=== PATIENT | male | born 1970 | race Caucasian/White ===

== ENCOUNTER 2022-04-19 18:13 | Emergency (ER) | payer OTHER, SELFPAY ==
[2022-04-19 18:41] VITALS: BP 172/91; PULSE 84; RESP 16; TEMP 36.1; O2SAT 99
--- NOTE | 2022-04-19 19:21 | PC.NURSE ---
Pt approached triage desk, stating this is going to be too expensive, im going to go to a dentist tomorrow and take some nyquil. Pt states he will come back if symptoms worsen. Pt educated on risks of leaving before seeing provider and benefits of staying, verbalized understanding.
== END 2022-04-19 19:21 | disposition left against medical advice (07) ==
LOC: ANHED 19:38
DX: R05.9 Cough, unspecified (principal)
CPT/HCPCS: 99199

== ENCOUNTER 2022-04-21 11:13 | Emergency (ER) | payer OTHER, SELFPAY ==
--- NOTE | ~2022-04-21 | XR_ITS ---
EXAMINATION: XR chest 2V DATE: 04/21/2022 12:49 INDICATION: Cough and congestion. TECHNIQUE: PA and lateral views of the chest were obtained. COMPARISON: None FINDINGS: The lungs are clear with no focal airspace opacities, pulmonary edema, pleural effusion or pneumothor ax. The cardiomediastinal silhouette is normal. Visualized bones and soft tissues are unremarkable. IMPRESSION: 1. No acute cardiopulmonary disease. Reviewed, dictated and finalized at location A.
[2022-04-21 11:41] VITALS: BP 161/94; PULSE 65; RESP 16; TEMP 36.6; O2SAT 98
--- NOTE | 2022-04-21 11:46 | PC.NURSE ---
Pt requesting to drink, this rn informed pt that we request no food or rink until a provider sees them. Pt then requesting to step outside and smoke.
--- NOTE | 2022-04-21 13:06 | ED.URI ---
HPI - URI/Sore Throat General Chief Complaint: Upper Respiratory Infection Stated Complaint: cough, dental pain Time Seen by Provider: 04/21/22 12:35 History of Present Illness HPI Narrative: 52-year-old male here for evaluation of sinus congestion for the past several days. States that he has noted green discharge from his nose and also postnasal drip. He has also been having a nonproductive cough over the past several days. Has not taken a COVID test yet. Additionally reporting right lower dental pain over the past week. He has an appointment with a dentist but states that his pain increased. He is taking ibuprofen with mild relief. No shortness of breath, fevers, chills, chest pain, trismus. Related Data Allergies Allergy/AdvReac Type Severity Reaction Status Date / Time No Known Allergies Allergy Verified 04/21/22 11:48 Review of Systems Review of Systems: Gen: Denies fevers or chills Eyes: Denies eye pain or visual change ENT: reports congestion. Respiratory: reports cough. Denies shortness of breath CV: Denies chest pain or palpitations GI: Denies abdominal pain nausea, emesis or diarrhea denies burning, urgency, frequency or hematuria Musculoskeletal: Denies back pain or muscle pain Neuro: Denies numbness, tingling, weakness or focal weakness Skin: Denies rash Except as documented, all other systems reviewed and negative Exam Narrative: APPEARANCE: Well appearing, no pain in distress, well-nourished. Head: Normocephalic and atraumatic. EYES: PERRLA/EOMI, conjunctivae clear NOSE: nasal drainage noted EARS: External ear normal in appearance THROAT: tooth number #31 is cracked with dental caries. Mucous membranes are moist. NECK: Supple. No adenopathy, no masses. RESPIRATORY: Airway patent, respirations nonlabored. Clear to auscultation bilaterally, no rales, rhonchi, wheezing. CARDIOVASCULAR: Regular rate and rhythm without murmurs, rubs, or gallops. ABDOMINAL: Normoactive bowel sounds. Soft, nontender, nondistended. No rebound tenderness or guarding. MUSCULOSKELETAL: Extremities are warm and well-perfused. Moves all extremities well. No edema. NEURO: Normal speech. No focal neurologic deficits. SKIN: Skin is warm and dry. No rashes. PSYCHIATRIC: Normal affect/mood. Course Vital Signs Vital signs: Vital Signs Temperature 97.8 F 04/21/22 11:41 Pulse Rate 65 04/21/22 11:41 Respiratory Rate 16 04/21/22 11:41 Blood Pressure 161/94 H 04/21/22 11:41 Pulse Oximetry 98 04/21/22 11:41 Oxygen Delivery Room Air 04/21/22 11:41 Temperature 97.8 F 04/21/22 11:41 Pulse Rate 64 04/21/22 14:14 Respiratory Rate 18 04/21/22 14:14 Blood Pressure 148/98 H 04/21/22 14:14 Pulse Oximetry 98 04/21/22 14:14 Oxygen Delivery Room Air 04/21/22 11:41 MDM - URI/Sore Throat MDM Narrative Medical decision making narrative: 52-year-old male here for evaluation of congestion and dental pain over the past several days. Here he is nontoxic-appearing, no fever or tachycardia. He has postnasal drip and congestion noted on exam, and he has a cracked tooth and dental caries in the area of his pain. Heart and lungs clear to auscultation. His chest x-ray is clear. COVID test negative. Patient not immunosuppressed, afebrile and well appearing with patent airway, have low suspicion for deep space infection or any concern for airway compromise. No evidence of tooth fracture, avulsion, or bleeding socket. No evidence of RPA, PRINT COLOR MATCHER, Peter?s angina, periapical abscess. He has follow-up with a dentist next week. He will be given amoxicillin for his dental pain, advised supportive measures for his upper respiratory infection symptoms. He was given return precautions. Lab Data Labs: Lab Results 04/21/22 Range/Units 12:56 SARS-CoV-2 RNA (RT-PCR) Negative Discharge Plan Discharge Clinical Impression: Upper respiratory infection, Pain, dental Patient Disposition: Home, Self-Ca
[2022-04-21] MEDS: ACETAMINOPHEN 325 MG TABLET 650 MG PO (13:29)
[2022-04-21 13:39] LABS: SARS-CoV-2 RNA PCR Negative
[2022-04-21 14:14] VITALS: BP 148/98; PULSE 64; RESP 18; O2SAT 98
== END 2022-04-21 14:15 | disposition home or self-care (01) ==
PROVIDERS: Physician Assistant; Emergency Provider Emergency Medicine
DX: J06.9 Acute upper respiratory infection, unspecified (principal); K08.89 Other specified disorders of teeth and supporting structures; Z20.822 Contact with and (suspected) exposure to COVID-19
CPT/HCPCS: 71046; 99283; A9270; C9803; U0003; U0005

== ENCOUNTER 2022-07-17 13:26 | Emergency (ER) | payer OTHER, SELFPAY ==
--- NOTE | ~2022-07-17 | XR_ITS ---
EXAMINATION: XR chest 2V Exam Date/Time: 07/17/2022 14:20 AUTOMOBILE PARKER HISTORY: cough, wheezing, SOB Comparison: 04/21/2022. RESULT: Lines, tubes, and devices: None. Lungs and pleura: Clear. Cardiomediastinal silhouette: Stable. Other: No acute osseous or upper abdominal finding. IMPRESSION: No acute cardiopulmonary process. Reviewed, dictated and finalized at location K. MOBILE PARKER
[2022-07-17 13:34] VITALS: BP 171/96; PULSE 81; RESP 18; TEMP 36.6; O2SAT 98
--- NOTE | 2022-07-17 14:18 | ED.URI ---
HPI - URI/Sore Throat General Chief Complaint: Upper Respiratory Infection Stated Complaint: congested Time Seen by Provider: 07/17/22 13:55 History of Present Illness HPI Narrative: 52-year-old male here for evaluation of congestion over the last week. Notes green drainage from his sinuses and cough productive of green sputum. Has attempted OTC medicines without relief of his symptoms. Presents today due to longevity of symptoms. No fevers, chills, nausea or vomiting. No chest pain or shortness of breath. He is a smoker. Related Data Allergies Allergy/AdvReac Type Severity Reaction Status Date / Time No Known Allergies Allergy Verified 07/17/22 14:03 Review of Systems Review of Systems: Gen.: Denies fevers or chills Eyes: Denies eye pain or visual change ENT: Reports congestion Respiratory: Reports cough. Denies shortness of breath CV: Denies chest pain or palpitations GI: Denies abdominal pain nausea, emesis or diarrhea denies burning, urgency, frequency or hematuria Musculoskeletal: Denies back pain or muscle pain Neuro: Denies numbness, tingling, weakness or focal weakness Skin: Denies rash Except as documented, all other systems reviewed and negative Exam Narrative: APPEARANCE: Well appearing, no pain in distress, well-nourished. Head: Normocephalic and atraumatic. EYES: PERRLA/EOMI, conjunctivae clear NOSE: Frontal and maxillary sinus tenderness EARS: External ear normal in appearance. TMs are clear bilaterally. No mastoid tenderness. THROAT: No tonsillar swelling or exudates noted. Oropharynx is clear. Mucous membranes are moist. NECK: Supple. No adenopathy, no masses. RESPIRATORY: Transmitted upper airway sounds present. CARDIOVASCULAR: Regular rate and rhythm without murmurs, rubs, or gallops. ABDOMINAL: Normoactive bowel sounds. Soft, nontender, nondistended. No rebound tenderness or guarding. MUSCULOSKELETAL: Extremities are warm and well-perfused. Moves all extremities well. No edema. NEURO: Normal speech. No focal neurologic deficits. SKIN: Skin is warm and dry. No rashes. PSYCHIATRIC: Normal affect/mood. Course Vital Signs Vital signs: Vital Signs Temperature 97.8 F 07/17/22 13:34 Pulse Rate 81 07/17/22 13:34 Respiratory Rate 18 07/17/22 13:34 Blood Pressure 171/96 H 07/17/22 13:34 Pulse Oximetry 98 07/17/22 13:34 Oxygen Delivery Room Air 07/17/22 13:34 Temperature 97.8 F 07/17/22 13:34 Pulse Rate 82 07/17/22 14:52 Respiratory Rate 20 07/17/22 14:52 Blood Pressure 171/96 H 07/17/22 13:34 Pulse Oximetry 98 07/17/22 13:34 Oxygen Delivery Room Air 07/17/22 13:34 MDM - URI/Sore Throat MDM Narrative Medical decision making narrative: 52-year-old male here for evaluation of upper respiratory infectious type symptoms for the past week. He is nontoxic-appearing and has normal vital signs aside from slightly elevated blood pressure. His lungs have transmitted upper airway sounds, he was given a breathing treatment with improvement of his lung sounds. His chest x-ray is clear. His COVID and flu test are negative. Likely URI. Upon rechecking patient, he is requesting me to look at his eye as he thinks he has conjunctivitis given itchiness and scant amount of green discharge. No blurry vision or eye pain. Eye is normal to inspection aside from scant amount of discharge present. Will prescribe erythromycin ointment to cover for bacterial conjunctivitis and encouraged him to follow-up with an eye doctor if not improved. He will be given return precautions and he voiced understanding. Lab Data Labs: Lab Results 07/17/22 Range/Units 14:00 Influenza A (RT-PCR) Negative (Negative) Influenza B (RT-PCR) Negative (Negative) SARS-CoV-2 RNA (RT-PCR) Negative Discharge Plan Discharge Clinical Impression: Upper respiratory infection Patient Disposition: Home, Self-Care Condition: Stable Instructions: Antibiotic Form, U
[2022-07-17] MEDS: ALBUTEROL SULFATE NEB 2.5 MG/3 ML INH 5 MG INHALATION (14:35)
[2022-07-17 14:36] VITALS: PULSE 75; RESP 20
[2022-07-17 14:45] LABS: Influenza A QL RT-PCR Negative (Negative); Influenza B QL RT-PCR Negative (Negative); SARS-CoV-2 RNA PCR Negative
[2022-07-17 14:52] VITALS: PULSE 82; RESP 20
== END 2022-07-17 15:11 | disposition home or self-care (01) ==
PROVIDERS: Emergency Provider Physician Assistant
DX: J06.9 Acute upper respiratory infection, unspecified (principal); Z20.822 Contact with and (suspected) exposure to COVID-19
CPT/HCPCS: 71046; 87636; 94640; 99283

== ENCOUNTER 2022-07-25 16:09 | Emergency (ER) | payer OTHER, SELFPAY ==
--- NOTE | ~2022-07-25 | CT_ITS ---
EXAMINATION: CT brain wo con DATE: 07/25/2022 17:04 INDICATION: syncope last week, fall w/ [place] . TECHNIQUE: Computed tomography (CT) of the head was performed without intravenous contrast. The mA wa s adjusted according to patient size. Iterative reconstruction technique was employed. The dose-lengt h product was 605.33 mGy-cm. COMPARISON: None FINDINGS: No acute intracranial hemorrhage or extra-axial fluid collection. No hydrocephalus, mass, or herniation. No acute ischemic infarct. Unremarkable dural venous sinus attenuation. No acute osseous abnormality. Left anterior maxillary polyp/retention cyst, the remaining aerated spaces are clear. IMPRESSION: No acute intracranial process. Reviewed, dictated and finalized at location K. DIEM REGISTERED NURSE
--- NOTE | ~2022-07-25 | XR_ITS ---
EXAMINATION: XR chest 2V Exam Date/Time: 07/25/2022 17:36 ANIMAL IMPERSONATOR HISTORY: cough/congestion X 3 weeks, covid/flu(-); smoker Comparison: 07/17/2022. RESULT: Lines, tubes, and devices: None. Lungs and pleura: Bilateral mid and lower lung reticulonodular and centrilobular nodular opacities, increased slightly since the prior study. Cardiomediastinal silhouette: Stable. Other: No acute osseous or upper abdominal finding. IMPRESSION: Pulmonary opacities may represent bronchiolitis, as can be seen with atypical infection, asthma, aspi ration, and small airways disease. Given the somewhat nodular appearance of several opacities, these findings should be followed after appropriate therapy/time interval to ensure resolution. Reviewed, dictated and finalized at location K. AL IMPERSONATOR IMPRESSION: Pulmonary opacities may represent bronchiolitis, as can be seen with atypical i nfection, asthma, aspiration, and small airways disease. Given the somewhat nod ular appearance of several opacities, these findings should be followed after a ppropriate therapy/time interval to ensure resolution.
--- NOTE | ~2022-07-25 | CT_ITS ---
EXAMINATION: CT cervical spine wo con DATE: 07/25/2022 17:04 INDICATION: syncope last week, fall w/ [place] TECHNIQUE: Computed tomography (CT) of the cervical spine was performed without intravenous contrast. Automated exposure control and iterative reconstruction technique were employed. The dose-length pro duct was 443.93 mGy-cm. COMPARISON: None. FINDINGS: Vertebral Body Alignment: Intact. . Craniocervical and atlantoaxial alignment: Moderate degenerative change. Alignment intact. Osseous structures/fracture: No evidence of a lytic or blastic process in the visualized spine. No e vidence of acute fracture. . Cervical soft tissues: The paraspinal soft tissues planes are maintained. Degenerative changes: Moderate degenerative disc disease at C5-6, with moderate central canal stenosi s, moderate left neural foraminal narrowing, and severe right neural foraminal stenosis at that level . IMPRESSION: No acute fracture or traumatic malalignment in the cervical spine Reviewed, dictated and finalized at location K. US DEAN
[2022-07-25 16:11] VITALS: BP 176/98; PULSE 95; RESP 20; TEMP 36.4; O2SAT 99
--- NOTE | 2022-07-25 16:46 | ECG_ITS ---
Measurements Intervals [place] Rate: 79 P: 61 IN: 161 QRS: 1 QRSD: 91 T: 25 QT: 382 QTc: 439 Interpretive Statements SINUS RHYTHM WITH SINUS ARRHYTHMIA NO PREVIOUS ECG AVAILABLE FOR COMPARISON Electronically Signed On 07-26-2022 11:14:12 [employer]ING [employer]S SEWER by Reinaldo Nickerson M.D.
--- NOTE | 2022-07-25 17:07 | ED.URI ---
HPI - URI/Sore Throat General Chief Complaint: Upper Respiratory Infection Stated Complaint: congestion, fall at work on Tuesday Time Seen by Provider: 07/25/22 16:15 Source: patient Mode of arrival: ambulatory Limitations: no limitations History of Present Illness HPI Narrative: Patient is a 52 y/o male who presents to the ED with c/o congestion and syncope. Patient reports he has had persistent congestion, rhinorrhea, sinus issues for the past 3 weeks. He has tried several [id number] remedies with minimal relief. He has been off work for the past 2 weeks, and tried to return last Tuesday. 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 He states he felt mildly dizzy at that time. He did hit his head on the concrete. Denied LOC. He was not evaluated at that time. Denies having any neck or back pain or dizziness since then, chest pain, difficulty breathing, further syncopal episodes. Patient does not currently see a doctor. He would like a work note to return to work. Related Data Allergies Allergy/AdvReac Type Severity Reaction Status Date / Time No Known Allergies Allergy Verified 07/17/22 14:03 Review of Systems Review of Systems: CONSTITUTIONAL: Denies fever, chills, or sweats. ENT: Reports congestion, rhinorrhea, sinus pressure. CARDIOVASCULAR: Denies chest pain. RESPIRATORY: Denies cough or dyspnea. GASTROINTESTINAL: Denies abdominal pain, nausea, vomiting, or diarrhea. MUSCULOSKELETAL: Denies back pain, neck pain. NEUROLOGIC: Reports syncopal episode. Denies LOC, dizziness, headache, numbness, or weakness. All systems reviewed & are unremarkable except as noted in HPI and below PMFSH Past Medical History Medical History (Updated 07/25/22 @ 18:38 by Leda Whittaker PA-C) No pertinent past medical history Surgical History Surgical History (Updated 07/25/22 @ 17:38 by Leda Whittaker PA-C) No pertinent past surgical history Social History Social History (Updated 07/25/22 @ 17:38 by Leda Whittaker PA-C) Smoking status: Current every day smoker Tobacco type: cigarettes Exam Narrative: GENERAL: Well appearing, obese, non-toxic, in no acute distress. HEAD: Normocephalic, atraumatic. EYES: PERRLA/EOMI, conjunctiva clear. ENT: No nasal discharge. Normal nares. No significant posterior pharynx erythema. No tonsillar hypertrophy or exudate. NECK: Supple. No adenopathy, no masses. No midline spinal tenderness. RESPIRATORY: Airway patent, respirations nonlabored. Clear to auscultation bilaterally, no rales, rhonchi, wheezing. CARDIOVASCULAR: Regular rate and rhythm without murmurs, rubs, or gallops. Radial pulses 2+ and equal bilaterally. MUSCULOSKELETAL: Moves all extremities. Strength/ROM intact without gross deformities. No midline thoracic or lumbar spinal tenderness. SKIN: Warm, dry, normal color. No rashes. NEURO: A&O X3. Speech clear. Cranial nerves II-XII grossly intact. Steady gait. No ataxic movements. Strength 5/5 in upper and lower extremities bilaterally. Equal local area network systems adminstrator strength. PSYCHIATRIC: Appropriate mood and affect. Normal interaction. Course Vital Signs Vital signs: Vital Signs Temperature 97.5 F L 07/25/22 16:11 Pulse Rate 95 07/25/22 16:11 Respiratory Rate 20 07/25/22 16:11 Blood Pressure 176/98 H 07/25/22 16:11 Pulse Oximetry 99 07/25/22 16:11 Oxygen Delivery Room Air 07/25/22 16:11 Temperature 97.5 F L 07/25/22 16:11 Pulse Rate 83 07/25/22 17:25 Respiratory Rate 20 07/25/22 16:11 Blood Pressure 171/93 H 07/25/22 17:25 Pulse Oximetry 99 07/25/22 16:11 Oxygen Delivery Room Air 07/25/22 16:11 MDM - URI/Sore Throat MDM Narrative Medical decision making narrative: Patient presented to ED with 3-week history of rhinorrhea, sinus pressure, congestion. Vital stable upon arrival. Afebrile. Influenza and COVID-negative. Basic labs obtained and showing leukocytosis of 13.2. Patient
[2022-07-25 17:19] VITALS: BP 149/126; PULSE 84
[2022-07-25 17:23] VITALS: BP 160/97; PULSE 78
[2022-07-25 17:25] VITALS: BP 171/93; PULSE 83
[2022-07-25 17:27] LABS: Influenza A QL RT-PCR Negative (Negative); Influenza B QL RT-PCR Negative (Negative); SARS-CoV-2 RNA PCR Negative
[2022-07-25 17:34] LABS: Basophils Absolute Auto 0.1 K/mm3 (0.0-0.1); Basophils Percent Auto 0.4 % (0.2-1.2); Eosinophils Absolute Auto 0.1 K/mm3 (0-0.3); Eosinophils Percent Auto 0.7 % (0-4.4); Hemoglobin 16.5 g/dL (14.0-18.0); Immature Granulocyte Absolute 0.13 K/mm3 (0.00-0.031); Lymphocytes Absolute Auto 1.89 K/mm3 (0.9-3.2); Lymphocytes Percent Auto 13.8 % (18.3-44.2); Mean Corpuscular HGB Conc 34.4 g/dl (32-36); Mean Corpuscular Hemoglobin 33.2 pg (26-34); Mean Corpuscular Volume 96.6 fl (80-100); Mean Platelet Volume 9.2 fl (7.4-10.4); Monocytes Absolute Auto 1.3 K/mm3 (0.1-0.6); Monocytes Percent Auto 9.7 % (2.6-8.5); Neutrophils Absolute Auto 10.2 K/mm3 (1.3-6.7); Neutrophils Percent Auto 74.4 % (45.5-73.1); Platelet Count Result 329 k/mm3 (150-375); Red Blood Count 4.97 M/mm3 (4.6-6.20); Red Cell Distribution Width 12.7 % (11.5-14.5); White Blood Count 13.7 K/mm3 (4.5-10.0)
[2022-07-25 17:52] LABS: Alanine Aminotransferase 41 U/L (6-50); Albumin Level 4.5 g/dL (3.5-5.1); Alkaline Phosphatase 120 U/L (38-126); Anion Gap 4 mmol/L (8-16); Aspartate Amino Transferase 43 U/L (17-59); Bilirubin,Total 0.5 mg/dL (0.2-1.3); Blood Urea Nitrogen 7 mg/dL (9-20); Calcium 8.7 mg/dL (8.4-10.2); Carbon Dioxide 33 mmol/L (22-30); Chloride 95 mmol/L (98-107); Estimated CRCL calculation 107 ml/min; Estimated Glomerular Filt Rate > 60; Glucose 89 mg/dL (65-110); Potassium 4.3 mmol/L (3.4-5.0); Sodium 132 mmol/L (137-145)
== END 2022-07-25 18:46 | disposition home or self-care (01) ==
PROVIDERS: Emergency Provider Physician Assistant
DX: J01.90 Acute sinusitis, unspecified (principal); J00 Acute nasopharyngitis [common cold]; R55 Syncope and collapse; R03.0 Elevated blood-pressure reading, without diagnosis of hypertension; Z20.822 Contact with and (suspected) exposure to COVID-19; F17.210 Nicotine dependence, cigarettes, uncomplicated; R91.8 Other nonspecific abnormal finding of lung field
CPT/HCPCS: 36415; 70450; 71046; 72125; 80053; 85025; 87636; 93005; 99284

== ENCOUNTER 2022-10-05 10:13 | Emergency (ER) | payer OTHER, SELFPAY ==
--- NOTE | 2022-10-05 10:16 | ECG_ITS ---
Measurements Intervals [place] Rate: 74 P: 39 VT: 153 QRS: 0 QRSD: 92 T: 48 QT: 379 QTc: 423 Interpretive Statements SINUS RHYTHM COMPARED TO ECG 07/25/2022 17:19:55 NO SIGNIFICANT CHANGES Electronically Signed On 10-05-2022 16:23:47 [employer] PACK WORKER by Latonya Carter M.D.
[2022-10-05 10:24] VITALS: BP 170/107; PULSE 83; RESP 18; TEMP 36.7; O2SAT 97
[2022-10-05 10:45] LABS: Add Urine Microscopic? YES; Appearance Urine Clear (Clear); Basophils Percent Auto 0.3 % (0.2-1.2); Bilirubin Urine 1+ (Negative); Blood Urine Trace-intact (Negative); Color Urine Orange (Yellow); Eosinophils Absolute Auto 0.1 K/mm3 (0-0.3); Glucose Urine UA Negative (Negative); Hematocrit 50.4 % (42.0-52.0); Hemoglobin 17.3 g/dL (14.0-18.0); Immature Granulocyte Absolute 0.05 K/mm3 (0.00-0.031); Immature Granulocyte Percent A 0.4 % (0-0.5); Ketones Urine Negative (Negative); Leukocyte Esterase Ur Negative LEU/UL (Negative); Lymphocytes Absolute Auto 1.51 K/mm3 (0.9-3.2); Mean Corpuscular HGB Conc 34.3 g/dl (32-36); Mean Corpuscular Hemoglobin 32.5 pg (26-34); Mean Corpuscular Volume 94.7 fl (80-100); Mean Platelet Volume 9.4 fl (7.4-10.4); Monocytes Absolute Auto 0.8 K/mm3 (0.1-0.6); Monocytes Percent Auto 7.1 % (2.6-8.5); Neutrophils Absolute Auto 9.1 K/mm3 (1.3-6.7); Neutrophils Percent Auto 78.2 % (45.5-73.1); Nitrate Urine Negative (Negative); Platelet Count Result 306 k/mm3 (150-375); Protein Urine 1+ mg/dL (Negative); Red Blood Count 5.32 M/mm3 (4.6-6.20); Red Cell Distribution Width 13.5 % (11.5-14.5); Specific Grav Ur 1.025 (1.001-1.035); Urobilinogen Urine 0.2 mg/dL (<2.0); White Blood Count 11.6 K/mm3 (4.5-10.0)
[2022-10-05 10:53] LABS: Alanine Aminotransferase 36 U/L (6-50); Albumin Level 4.4 g/dL (3.5-5.1); Alkaline Phosphatase 109 U/L (38-126); Anion Gap 3 mmol/L (8-16); Aspartate Amino Transferase 36 U/L (17-59); Bilirubin,Total 0.8 mg/dL (0.2-1.3); Blood Urea Nitrogen 10 mg/dL (9-20); Calcium 8.6 mg/dL (8.4-10.2); Carbon Dioxide 32 mmol/L (22-30); Chloride 100 mmol/L (98-107); Estimated CRCL calculation 106 ml/min; Estimated Glomerular Filt Rate > 60; Glucose 132 mg/dL (65-110); Potassium 4.3 mmol/L (3.4-5.0); Sodium 135 mmol/L (137-145)
[2022-10-05 10:55] LABS: Mucus Urine Heavy /lpf; Squamous Epithelial Cell Urine Occasional /hpf (Few); WBC Urine 0-3 /hpf
--- NOTE | 2022-10-05 13:02 | PC.NURSE ---
Pt ambulated out to intake desk to inform he was not longer wanting to be seen due to wait times. NAD noted at time of departure.
== END 2022-10-05 14:15 | disposition left against medical advice (07) ==
LOC: ANHED 13:09
PROVIDERS: Emergency Medicine; Emergency Provider Emergency Medicine
DX: R55 Syncope and collapse (principal)
CPT/HCPCS: 36415; 80053; 81001; 85025; 93005; 99199